=== PATIENT | female | born 2000 | race Caucasian/White ===

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

== ENCOUNTER 2020-11-29 15:36 | Emergency (ER) | payer BC ==
[~2020-11-29] VITALS: Ht 149.9 cm; Wt 85.5 kg
--- NOTE | 2020-11-29 16:19 | NUR ---
PT HERE FOR C/O RUQ ABD PAIN X1 WEEK, SEEN AT LAST WEEK FOR SAME. PT PLACED ON VITALS MONITORS. CALL LIGHT PROVIDED.
[2020-11-29] MEDS ORDERED: SODIUM CHLORIDE FLUSH 10ML SYR IVF ONE (17:00)
[2020-11-29] MEDS ORDERED: KETOROLAC 30 MG/1 ML IVPush ONE (17:00)
[2020-11-29] MEDS ORDERED: ONDANSETRON 2MG/ML, 2ML IVPush ONE (17:00)
[2020-11-29 17:06] LABS: BASOPHILS % (AUTO) 0 % (0-1); EOSINOPHILS % (AUTO) 1 % (1-7); LYMPHOCYTES % (AUTO) 22 % (22-44); MEAN CORPUSCULAR HEMOGLOBIN 30.2 pg (27.0-34.8); MEAN CORPUSCULAR HGB CONC 34.4 g/dL (32.4-35.8); MEAN PLATELET VOLUME 8.1 fL (7.4-10.4); MONOCYTES % (AUTO) 9 % (2-9); NEUTROPHILS % (AUTO) 68 % (42-75); PLATELET COUNT 278 x10^3/uL (130-400); RED BLOOD COUNT 4.41 x10^6/uL (3.82-5.3); RED CELL DISTRIBUTION WIDTH 12.9 % (9.6-15.2)
[2020-11-29 17:10] LABS: ALBUMIN 3.5 g/dL (3.4-5.0); ANION GAP 5 mmol/L (5-15); CALCIUM 8.4 mg/dL (8.5-10.1); CHLORIDE 110 mmol/L (98-107)
[2020-11-29] MEDS ORDERED: KETOROLAC 30 MG/1 ML ONE (17:15)
[2020-11-29] MEDS ORDERED: ONDANSETRON 2MG/ML, 2ML ONE (17:15)
[2020-11-29 17:18] LABS: ALANINE AMINOTRANSFERASE 24 U/L (12-78); ALKALINE PHOSPHATASE 56 U/L (45-117); BILIRUBIN,TOTAL 0.3 mg/dL (0.2-1.0); CREATININE 0.54 mg/dL (0.55-1.02); TOTAL PROTEIN 7.5 g/dL (6.4-8.2)
[2020-11-29 18:18] LABS: MICROSCOPIC AUTO
[2020-11-29 19:10] VITALS: BP 104/69
== END 2020-11-29 19:13 | disposition home or self-care (01) ==
LOC: ED 18:34
DX: R10.11 Right upper quadrant pain (principal); R11.0 Nausea
CPT/HCPCS: 36415; 76700; 80053; 81001; 83690; 84703; 85025; 87086; 96374; 96375; 99284; J1885; J2405